=== PATIENT | male | born 1965 | race Caucasian/White ===

== ENCOUNTER 2024-11-22 09:43 | Outpatient (CLI) | payer OTHER, SELFPAY ==
--- OUTSIDE RECORDS SUMMARY | 2024-11-22 10:38 | XMS_ITS | Clinical Summary ---
Author Organization [facility] Address [address] [place] [address] Phone Care Team Providers Care Order Management Specialist Name Role Phone Provider, None Primary Care Provider Unavailabl e Medications omeprazole (PriLOSEC) 20 MG CAPSULE DELAYED RELEASEIndicat ions:Gastroeso phageal Reflux Disease Take 1 Capsule by mouth daily. Indications: Gastroesophageal Reflux Disease 30 Capsule 10/07/19 Active Encounters Date Type Department Care Team Description 10/20/2024 Telephone [facility] [address] [place] [address] Soraya Ahn RN 10/06/2024 5:36 PM CDT - 10/06/2024 6:56 PM CDT Emergency [facility] [address] [place] [phone] Fidel Francisco MD Hypokalemia Discharge Disposition: Discharged to home or Selfcare 10/06/2024 Travel 10/05/2024 12:16 PM CDT - 10/05/2024 2:16 PM CDT Emergency [facility] [address] [place] [address] Eneida Nichols MD Alcoholic encephalopathy (HCC) Discharge Disposition: Left Against Medical Advice 10/05/2024 10:05 AM CDT - 10/05/2024 11:02 AM CDT Emergency [facility] [address] [place] [address] Eneida Nichols MD Discharge Disposition: Left Against Medical Advice 10/05/2024 Telephone [facility] [address] [facility] [place] [address] Maryuri Lewis RN ED Follow up (Test results) 10/05/2024 Travel from Last 3 Months Social History Tobacco Use Types Packs/Day Years Used Date Smoking Tobacco: Every Day Cigarettes Smokeless Tobacco: Never Tobacco Cessation:Ready to Q uit: Not Asked Alcohol Use Standard Drinks/Week Comments Yes 0 (1 standard drink = 0.6 oz pur e alcohol) daily Sex and Gender Information Value Date Recorded Sex Assigned at Not on file Legal Sex Male 9:07 PM CDT Gender Identity Not on file Sexual Orientation Not on file Last Filed Vital Signs Vital Sign Reading Time Taken Comments Blood Pressure 133/62 10/06/2024 6:00 PM CDT Pulse 73 10/06/2024 6:00 PM CDT Temperature 37.3 C (99.2 F) 10/06/2024 4:23 PM CDT Respiratory Rate 16 10/06/2024 6:00 PM CDT Oxygen Saturation 97% 10/06/2024 6:00 PM CDT Inhaled Oxygen Concentration - - Weight 79.4 kg (175 lb) 10/06/2024 4:23 PM CDT Height 170.2 cm (5' 7) 10/06/2024 4:23 PM CDT Body Mass Index 27.41 10/06/2024 4:23 PM CDT Plan of Treatment Health Maintenance Due Date Last Done Comments Hepatitis C Virus (HCV) Screening 1965 TdaP Immunization 1965 Pneumococcal Immunization (5 0+ years) (1 of 2 - PCV) 1982 Cologuard 02/13/2008 Colonoscopy 02/13/2008 Colorectal Cancer Screening 02/13/2008 Immunochemical Fecal Occult Blood 02/13/2008 Zoster Immunization (1 of 2) 2013 PSA Discussion 2018 SARS-COV-2 Immunization ( season) 2023 08/18/2020, 07/30/2020 Influenza Immunization (#1) 2024 Respiratory Syncytial Virus (RSV) Immunization (Adult) (1 - 1-dose 75+ series) 2038 Hepatitis B Immunization Aged Out No longer eligible based on patient's age to complete this topic Human Papillomavirus (HPV) Immunization Aged Out No longer eligible b ased on patient's age to complete this topic Meningococcal Immunization (ACWY) Aged Out No longer eligible b ased on patient's age to complete this topic Rotavirus Immunization Aged Out No lo nger eligible based on patient's age to complete this topic Procedures Procedure Name Priority Date/Time Associated Diagnosis Comments CBC WITH AUTO DIFFERENTIAL STAT 10/06/2024 4:30 PM CDT ETHYL ALCOHOL (ETHANOL) STAT 10/06/2024 4:30 PM CDT COMPLETE BLOOD COUNT (CBC) WITH DIFF STAT 10/06/2024 4:30 PM CDT CMP (COMPREHENSIVE METABOLIC PANEL) STAT 10/06/2024 4:[address] CHEST ABDOMEN AND PELVIS W CONTRAST Stat with Interpretation 10/05/2024 1:[address] HEAD OR BRAIN WO CONTRAST Stat with Interpretation 10/05/2024 1:02 PM CDT GOLD TOP TUBE STAT 10/05/2024 10:50 AM CDT BLUE TOP TUBE STAT 10/05/2024 10:50 AM CDT EXTRA TUBES STAT 10/05/2024 10:50 AM CDT CBC WITH AUTO DIFFERENTIAL STAT 10/05/2024 10:20 AM CDT N-TERMINAL- PRO B TYPE NATRIURETIC PEPTIDE STAT 10/05/2024 10:20 AM CDT ETHYL ALCOHOL (ETHANOL) STAT 10/05/2024 10:20 AM CDT MAGNESIUM (MG) STAT 10/05/2024 10:20 AM CDT TROPONIN I, HIGH SENSITIVITY (HSTRP) STAT 10/05/2024 10:20 AM CDT CMP (COMPREHENSIVE METABOLIC PANEL) STAT 10/05/2024 10:20 AM CDT COMPLETE BLOOD COUNT (CBC) WITH DIFF STAT 10/05/2024 10:20 AM CDT EKG 12 LEAD STAT 10/05/2024 10:05 AM CDT EKG SCAN 10/05/2024 12:00 AM CDT from Last 3 Months Results * (ABNORMAL) CBC with Auto Differential (10/06/2024 4:30 PM CDT) Only the most recent of2 resultswithin the time period is included. WBC 9.24 4.00 - 12.00 10(3)/mcL 10/06/2024 4:41 PM CDT [facility] RBC 4.84 4.40 - 5.80 10(6)/mcL 10/06/2024 4:41 PM CDT [facility] HEMOGLOBIN (HGB) 15.7 13.0 - 16.5 g/dL 10/06/2024 4:41 PM CDT [facility] HEMATOCRIT (HCT) 42.9 38.0 - 50.0 % 10/06/2024 4:41 PM CDT [facility] MCV 88.6 82.0 - 96.0 fL 10/06/2024 4:41 PM CDT [facility] MCH 32.4(H) 26.0 - 32.0 pg 10/06/2024 4:41 PM CDT [facility] MCHC 36.6(H) 31.0 - 36.0 g/dL 10/06/2024 4:41 PM CDT [facility] PLATELET COUNT 152 140 - 440 10(3)/mcL 10/06/2024 4:41 PM CDT [facility] RDW 11.1(L) 11.8 - 15.5 % 10/06/2024 4:41 PM CDT [facility] MPV 9.0 8.0 - 12.6 fL 10/06/2024 4:41 PM CDT [facility] NEUTROPHILS 66.0 40.0 - 68.0 % 10/06/2024 4:41 PM CDT [facility] LYMPHOCYTES 16.5(L) 19.0 - 49.0 % 10/06/2024 4:41 PM CDT [facility] MONOCYTES 15.2(H) 3.0 - 13.0 % 10/06/2024 4:41 PM CDT [facility] EOSINOPHILS 0.5 0.0 - 8.0 % 10/06/2024 4:41 PM CDT [facility] BASOPHILS 0.6 0.0 - 1.0 % 10/06/2024 4:41 PM CDT [facility] IMMATURE GRANULOCYTE 1.2(H) 0.0 - 0.4 % 10/06/2024 4:41 PM CDT [facility] Comment:Immature Granulocyte s includes Metamyelocytes, Myelocytes, and Promyelocytes. ABSOLUTE NEUTROPHILS 6.10(H) 1.40 - 5.30 10(3)/[facility] 10/06/2024 4:41 PM CDT [facility] ABSOLUTE LYMPHOCYTES 1.52 0.90 - 3.30 10(3)/[facility] 10/06/2024 4:41 PM CDT [facility] ABSOLUTE MONOCYTES 1.40(H) 0.10 - 0.90 10(3)/mcL 10/06/2024 4:41 PM CDT [facility] ABSOLUTE EOSINOPHIL 0.05 0.00 - 0.50 10(3)/[facility] 10/06/2024 4:41 PM [facility] ABSOLUTE BASOPHILS 0.06 0.00 - 0.10 10(3)/[facility] 10/06/2024 4:41 PM CDT [facility] ABSOLUTE IMMATURE GRANULOCYTE 0.11(H) 0.00 - 0.03 10 (3) mcL. 10/06/2024 4:41 PM CDT [facility] NRBC PER 100 WBC 0 10/07/19 4:41 PM CDT [facility] Blood Venipuncture / Unknown 10/06/2024 4:30 PM CDT 10/06/2024 4:37 PM CDT Tom Fleipe Randell DO HEMATOLOGY ORDERABLES F inal Result Performing Organization Address [facility] Co de Phone Number [facility] [address] [place] [address] * (ABNORMAL) Ethyl Alcohol(Ethanol) [id number] (10/06/2024 4:30 PM CDT) Only the most recent of2 resultswithin the time period is included. ETHANOL 29(H) <10 mg/dL 10/06/2024 5:0 2 PM CDT [facility] Blood Venipuncture / Unknown 10/06/2024 4:30 PM CDT 10/06/2024 4:37 PM CDT Norman Hodge PAC CHEMISTRY ORDERABLES Final Result Performing Organization Address [facility] Co de Phone Number [facility] [address] [place] [address] * (ABNORMAL) CMP (Comprehensive Metabolic Panel) (10/06/2024 4:30 PM CDT) Only the most recent of2 resultswithin the time period is included. SODIUM 125(L) 136 - 145 mmol/L 10/06/2024 5:09 PM CDT [facility] POTASSIUM 3.3(L) 3.5 - 5.1 mmol/L 10/06/2024 5:09 PM CDT [facility] CHLORIDE 91(L) 98 - 107 mmol/L 10/06/2024 5:09 PM CDT [facility] CO2, VENOUS 23 22 - 30 mmol/L 10/06/2024 5:09 PM T [facility] ANION GAP 14.3 <18.0 mmol/L 10/06/2024 5:09 PM T [facility] GLUCOSE 97 70 - 99 mg/dL 10/06/2024 5:09 PM T [facility] BUN 6(L) 8 - 26 mg/dL 10/06/2024 5:09 PM [facility] CREATININE, BLOOD 0.59(L) 0.70 - 1.30 mg/dL 10/06/2024 5:09 PM [facility] BUN/CREATININE RATIO 10(L) 12 - 20 ratio 10/06/2024 5:09 PM [facility] TOTAL PROTEIN 7.2 6.0 - 8.0 g/dL 10/06/2024 5:09 PM [facility] ALBUMIN 4.2 3.5 - 5.0 g/dL 10/06/2024 5:09 PM [facility] A/G RATIO 1.4 1.0 - 2.2 10/06/2024 5:09 PM [facility] CALCIUM 9.1 8.7 - 10.5 mg/dL 10/06/2024 5:09 PM [facility] T BILI 1.3(H) 0.2 - 1.2 mg/dL 10/06/2024 5:09 PM [facility] SGOT (AST) 71(H) <43 U/L 10/06/2024 5:09 PM [facility] SGPT (ALT) 119(H) <56 U/L 10/06/2024 5:09 PM [facility] ALKALINE PHOSPHATASE 96 40 - 150 U/L 10/06/2024 5:09 PM [facility] GFR, ESTIMATED >60 >=60 10/06/2024 5:09 PM T [facility] Comment: Creatinine Clearance is the preferred criteria for selecting drug dose adjustments in renally impaired patients. The GFR is provided as additional pertinent clinical information. GFR is reported in mL/min/1.73 sq m. Calculation based on the Chronic Kidney Disease Epidemiology Collaboration (CKD- EPI) equation refit without adjustment for race. GFR, EST. >60 >=60 025 5:09 PM CDT [facility] GFR, EST. NONAFRICAN >60 >=60 10/06/2024 5:09 PM CDT [facility] Blood Venipuncture / Unknown 10/06/2024 4:30 PM CDT 10/06/2024 4:37 PM CDT us Tom Mejias DO CHEMISTRY ORDERABLES Fi nal Result [facility] [address] [place] [address] * CT CHEST ABDOMEN AND PELVIS W CONTRAST (10/05/2024 1:09 PM CDT) Anatomical Region Laterality Modality Chest, Abdomen, Pelvis N/A Computed Tomography 10/05/2024 2:22 PM CDT Impressions 10/05/2024 2:24 PM CDT IMPRESSION: 1. Circumferential thickening of the entire esophagus with mucosal hyperenhancement and fluid in the mid and distal esophagus. Findings likely represent esophagitis. Recommend correlation with endoscopy. 2. Small area of tree-in-bud nodular and ground-glass opacity in the left lower lobe, likely infectious or inflammatory. 3. 6 mm nodule in the left upper lobe. Recommend follow-up chest CT per Fleischner guidelines. 4. Mild wall thickening of several loops of jejunum, which may be related to enteritis. 5. Severe hepatic steatosis. 6. Indeterminate 1.5 cm left adrenal gland nodule. This could be better evaluated with adrenal mass protocol MRI or CT. 7. Coronary artery disease and additional findings as above. Recent guidelines by the Fleischner Society (Radiology 971036,2017) divides patient into low vs. high risk (for example, patients who smoke are considered high risk) and provides followup recommendations as follows: SOLITARY PULMONARY NODULE: Patients considered LOW RISK for lung cancer and a solitary nodule equal to or larger than 6 mm or equal to or less than 8 mm in diameter require follow-up CT at 6-12 months, then consider CT at 18-24 months. In patients at HIGHER RISK require follow-up CT at 6-12 months, then CT at 18-24 months. MULTIPLE PULMONARY NODULES: Patients considered LOW RISK for lung cancer and multiple nodules equal to or larger than 6 mm or equal to or less than 8 mm in diameter require follow-up CT at 3-6 months, then consider CT at 18-24 months. Patients at HIGHER RISK require follow-up CT at 3-6 months, then CT at 18-24 months. Note: These recommendations do not apply to lung cancer screening, patients with immunosuppression, or patients with known primary cancer. http://pubs.rsna.org/doi/pdf/10.1148/radiol.6173339727 Narrative 10/05/2024 2:24 PM CDT EXAM DESCRIPTION: CT CHEST ABDOMEN AND PELVIS W CONTRAST REASON FOR STUDY: Sternal chest pain and abdominal pain with SOB x 8 days. Hx of daily smoking. TECHNIQUE: CT scan of the chest, abdomen, and pelvis performed with intravenous and without oral contrast using helical scanning technique with dynamic intravenous contrast injection. Reconstructed coronal and sagittal MPR images reviewed. All images stored on PACS. Automated exposure control was used as a dose optimization technique for this examination. CONTRAST TYPE/DOSE: 100mL of IOPAMIDOL 76 % IV SOLN injected via Intravenous COMPARISON: None FINDINGS: CHEST LUNGS: There is mild respiratory motion artifact degrading the evaluation. There are mild centrilobular and paraseptal emphysematous changes to the lungs. There is a small area tree-in-bud nodular and ground-glass opacity in the left lower lobe. There is a 6 mm nodule in the left upper lobe on series 2, image 65). PLEURA: No effusion. No pneumothorax. MEDIASTINUM/MAYNOR: There is circumferential thickening of the entire esophagus with mucosal hyperenhancement. There is fluid in the mid and distal esophagus as well. There are small mediastinal lymph nodes, nonenlarged by size criteria. There are calcified hilar granulomas. HEART: Heart size is normal with no pericardial effusion. Aortic valvular calcifications are present. There are multivessel coronary artery calcifications. VASCULATURE CHEST: Bdng-vy-ntewvoar atherosclerotic plaque of the thoracic aorta without aneurysm or dissection. AXILLA: No adenopathy. CHEST WALL: No masses. No subcutaneous air. HARDWARE/LINES/TUBES: None. MUSCULOSKELETAL CHEST: No suspicious osseous lesion. There are old right lateral rib fractures. ABDOMEN/PELVIS LIVER: There is severe hepatic steatosis. No hepatic lesions identified. The hepatic and portal veins are patent. GALLBLADDER: No stones identified. No wall thickening or inflammatory changes. BILE DUCTS: No intrahepatic or extrahepatic ductal dilatation. SPLEEN: Normal size. No focal lesions. PANCREAS: No identified cystic or solid masses. No significant calcifications. No adjacent inflammation or peripancreatic fluid collections. Pancreatic duct not dilated. ADRENALS: There is a 1.5 cm nodule in the left adrenal gland which is indeterminate. KIDNEYS/URINARY TRACT: No identified significant cystic or solid masses. No visualized stones. No hydronephrosis or hydroureter. Symmetric enhancement. Urinary bladder is unremarkable. GI: Stomach is decompressed. There is mild wall thickening of several loops of jejunum. No sign of appendicitis. No significant diverticular disease. PERITONEUM: No ascites or free air. RETROPERITONEUM: There are small nonspecific retroperitoneal lymph nodes which are nonenlarged by size criteria. REPRODUCTIVE: Mildly enlarged prostate with dystrophic calcification. VASCULATURE ABDOMEN: Large amount of calcified atherosclerotic plaque in the aorta and iliac vessels without aneurysm. MUSCULOSKELETAL ABDOMEN PELVIS: There is no suspicious osseous lesion. There are degenerative changes of the lumbar spine, including grade 1 anterolisthesis of L5 on S1 with bilateral L5 pars defects. OTHER: No significant abnormality. THIS IS AN ELECTRONICALLY VERIFIED FINAL REPORT 10/05/2024 2:22 PM - Electronically signed by Enrique Boyd M.D. AM: AM Report ID: [id number] Reading Location: [id number] Procedure Note Enrique Boyd MD - 10/05/2024 EXAM DESCRIPTION: CT CHEST ABDOMEN AND PELVIS W CONTRAST REASON FOR STUDY: Sternal chest pain and abdominal pain with SOB x 8 days. Hx of daily smoking. TECHNIQUE: CT scan of the chest, abdomen, and pelvis performed with intravenous and without oral contrast using helical scanning technique with dynamic intravenous contrast injection. Reconstructed coronal and sagittal MPR images reviewed. All images stored on PACS. Automated exposure control was used as a dose optimization technique for this examination. CONTRAST TYPE/DOSE: 100mL of IOPAMIDOL 76 % IV SOLN injected via Intravenous COMPARISON: None FINDINGS: CHEST LUNGS: There is mild respiratory motion artifact degrading the evaluation. There are mild centrilobular and paraseptal emphysematous changes to the lungs. There is a small area tree-in-bud nodular and ground-glass opacity in the left lower lobe. There is a 6 mm nodule in the left upper lobe on series 2, image 65). PLEURA: No effusion. No pneumothorax. MEDIASTINUM/MAYNOR: There is circumferential thickening of the entire esophagus with mucosal hyperenhancement. There is fluid in the mid and distal esophagus as well. There are small mediastinal lymph nodes, nonenlarged by size criteria. There are calcified hilar granulomas. HEART: Heart size is normal with no pericardial effusion. Aortic valvular calcifications are present. There are multivessel coronary artery calcifications. VASCULATURE CHEST: Jgrj-wy-jzraxhgd atherosclerotic plaque of the thoracic aorta without aneurysm or dissection. AXILLA: No adenopathy. CHEST WALL: No masses. No subcutaneous air. HARDWARE/LINES/TUBES: None. MUSCULOSKELETAL CHEST: No suspicious osseous lesion. There are old right lateral rib fractures. ABDOMEN/PELVIS LIVER: There is severe hepatic steatosis. No hepatic lesions identified. The hepatic and portal veins are patent. GALLBLADDER: No stones identified. No wall thickening or inflammatory changes. BILE DUCTS: No intrahepatic or extrahepatic ductal dilatation. SPLEEN: Normal size. No focal lesions. PANCREAS: No identified cystic or solid masses. No significant calcifications. No adjacent inflammation or peripancreatic fluid collections. Pancreatic duct not dilated. ADRENALS: There is a 1.5 cm nodule in the left adrenal gland which is indeterminate. KIDNEYS/URINARY TRACT: No identified significant cystic or solid masses. No visualized stones. No hydronephrosis or hydroureter. Symmetric enhancement. Urinary bladder is unremarkable. GI: Stomach is decompressed. There is mild wall thickening of several loops of jejunum. No sign of appendicitis. No significant diverticular disease. PERITONEUM: No ascites or free air. RETROPERITONEUM: There are small nonspecific retroperitoneal lymph nodes which are nonenlarged by size criteria. REPRODUCTIVE: Mildly enlarged prostate with dystrophic calcification. VASCULATURE ABDOMEN: Large amount of calcified atherosclerotic plaque in the aorta and iliac vessels without aneurysm. MUSCULOSKELETAL ABDOMEN PELVIS: There is no suspicious osseous lesion. There are degenerative changes of the lumbar spine, including grade 1 anterolisthesis of L5 on S1 with bilateral L5 pars defects. OTHER: No significant abnormality. THIS IS AN ELECTRONICALLY VERIFIED FINAL REPORT 10/05/2024 2:22 PM - Electronically signed by Enrique Boyd M.D. AM: AM Report ID: [id number] Reading Location: [id number] IMPRESSION: 1. Circumferential thickening of the entire esophagus with mucosal hyperenhancement and fluid in the mid and distal esophagus. Findings likely represent esophagitis. Recommend correlation with endoscopy. 2. Small area of tree-in-bud nodular and ground-glass opacity in the left lower lobe, likely infectious or inflammatory. 3. 6 mm nodule in the left upper lobe. Recommend follow-up chest CT per Fleischner guidelines. 4. Mild wall thickening of several loops of jejunum, which may be related to enteritis. 5. Severe hepatic steatosis. 6. Indeterminate 1.5 cm left adrenal gland nodule. This could be better evaluated with adrenal mass protocol MRI or CT. 7. Coronary artery disease and additional findings as above. Recent guidelines by the Fleischner Society (Radiology 940454,2017) divides patient into low vs. high risk (for example, patients who smoke are considered high risk) and provides followup recommendations as follows: SOLITARY PULMONARY NODULE: Patients considered LOW RISK for lung cancer and a solitary nodule equal to or larger than 6 mm or equal to or less than 8 mm in diameter require follow-up CT at 6-12 months, then consider CT at 18-24 months. In patients at HIGHER RISK require follow-up CT at 6-12 months, then CT at 18-24 months. MULTIPLE PULMONARY NODULES: Patients considered LOW RISK for lung cancer and multiple nodules equal to or larger than 6 mm or equal to or less than 8 mm in diameter require follow-up CT at 3-6 months, then consider CT at 18-24 months. Patients at HIGHER RISK require follow-up CT at 3-6 months, then CT at 18-24 months. Note: These recommendations do not apply to lung cancer screening, patients with immunosuppression, or patients with known primary cancer. http://pubs.rsna.org/doi/pdf/10.1148/radiol.9287354117 Eneida Nichols MD IMG CT ORDERABLES Final Result * CT HEAD OR BRAIN WO CONTRAST (10/05/2024 1:02 PM CDT) Anatomical Region Laterality Modality Head N/A Computed Tomogra phy 10/05/2024 2:08 PM CDT Impressions 10/05/2024 2:10 PM CDT IMPRESSION: 1. No acute intracranial findings. 2. Mild chronic microangiopathy and generalized atrophy. 3. Complete opacification of the left and partial opacification of the right mastoid air cells, nonspecific but could be related to mastoiditis. Narrative 10/05/2024 2:10 PM CDT EXAM DESCRIPTION: CT HEAD OR BRAIN WO CONTRAST REASON FOR STUDY: AMS with increasing confusion over past two days per patient's GF. Hx of daily drinking and heavy smoking. TECHNIQUE: Axial images acquired through the brain without intravenous contrast. Images stored on PACS. Automated exposure control was used as a dose optimization technique for this examination. COMPARISON: None FINDINGS: BRAIN: No hemorrhage, edema or mass effect. No recent infarct. There is subtle low-attenuation in the supratentorial deep cerebral white matter likely related to chronic microangiopathy. There is also mild generalized atrophy. No hydrocephalus. EXTRA-AXIAL SPACES: No fluid collections. No masses. CALVARIUM: No fracture. SINUSES/MASTOIDS: Complete opacification of the left and partial opacification of the right mastoid air cells. ORBITS: No significant abnormality. OTHER: No other significant abnormality. THIS IS AN ELECTRONICALLY VERIFIED FINAL REPORT 10/05/2024 2:08 PM - Electronically signed by Enrique Boyd M.D. AM: AM Report ID: [id number] Reading Location: [id number] Procedure Note Enrique Boyd MD - 10/05/2024 EXAM DESCRIPTION: CT HEAD OR BRAIN WO CONTRAST REASON FOR STUDY: AMS with increasing confusion over past two days per patient's GF. Hx of daily drinking and heavy smoking. TECHNIQUE: Axial images acquired through the brain without intravenous contrast. Images stored on PACS. Automated exposure control was used as a dose optimization technique for this examination. COMPARISON: None FINDINGS: BRAIN: No hemorrhage, edema or mass effect. No recent infarct. There is subtle low-attenuation in the supratentorial deep cerebral white matter likely related to chronic microangiopathy. There is also mild generalized atrophy. No hydrocephalus. EXTRA-AXIAL SPACES: No fluid collections. No masses. CALVARIUM: No fracture. SINUSES/MASTOIDS: Complete opacification of the left and partial opacification of the right mastoid air cells. ORBITS: No significant abnormality. OTHER: No other significant abnormality. THIS IS AN ELECTRONICALLY VERIFIED FINAL REPORT 10/05/2024 2:08 PM - Electronically signed by Enrique Boyd M.D. AM: AM Report ID: [id number] Reading Location: [place] [id number] IMPRESSION: 1. No acute intracranial findings. 2. Mild chronic microangiopathy and generalized atrophy. 3. Complete opacification of the left and partial opacification of the right mastoid air cells, nonspecific but could be related to mastoiditis. us Eneida Nichols MD IMG CT ORDERABLES Final Result * Gold Top Tube (10/05/2024 10:50 AM CDT) Blood No Phlebotomy Charged / Unknown 10/05/2024 10:50 AM CDT 10/05/2024 11:03 AM CDT us Eneida Nichols MD CHEMISTRY ORDERABLES Fin al Result [facility] [address] [place] [address] * Blue Top Tube (10/05/2024 10:50 AM CDT) Blood No Phlebotomy Charged / Unknown 10/05/2024 10:50 AM CDT 10/05/2024 11:03 AM CDT us Eneida Nichols MD HEMATOLOGY ORDERABLES Fi nal Result Performing Organization Address City/[facility]/ZIP Co de Phone Number [facility] [place] [address] * NT-proBNP (10/05/2024 10:20 AM CDT) NT PROBNP 153.7 <450.0 pg/mL 10/05/2024 12:20 PM CDT [facility] Comment: AGE pg/mL INTERPRETATION All <300 Negative: HF (Heart Failure) unlikely 18 to <50 >=300.0 to <450.0 Indeterminate. Consider other causes of NT-proBNP elevation 50 to 75 >=300.0 to <900.0 Indeterminate. Consider other causes of NT-proBNP elevation >75 >=300.0 to <1800.0 Indeterminate. Consider other causes of NT-proBNP elevation 18 to <50 >=450.0 Positive: HF likely 50 to 75 >=900.0 Positive: HF likely >75 >=1800.0 Positive: HF likely Total protein levels at or above 12.6 mg/dl may falsely decrease NT-proBNP values. Blood Venipuncture / Unknown 10/05/2024 10:20 AM CDT 10/05/2024 11:02 AM CDT Eneida Nichols MD CHEMISTRY ORDERABLES Fin al Result Performing Organization Address [facility] Co de Phone Number [facility] [place] [address] * (ABNORMAL) TROPONIN I, HIGH SENSITIVITY (HSTRP) (10/05/2024 10:20 AM CDT) TROPONIN I, HIGH SENSITIVITY- LEIGH 46(H) <=35 ng/L 10/05/2024 11:32 AM CDT [facility] Comment: High-sensitivity troponin I results are reported in ng/L making the result appear to be 1,000 times higher than the contemporary troponin I value which is reported in ng/ml. Results from [place]. Blood Venipuncture / Unknown 10/05/2024 10:20 AM CDT 10/05/2024 11:02 AM CDT Eneida Nichols MD CHEMISTRY ORDERABLES Fin al Result Performing Organization Address [facility] Co de Phone Number [facility] [place] [address] * Magnesium (Mg) [id number] (10/05/2024 10:20 AM CDT) MAGNESIUM 2.2 1.6 - 2.6 mg/dL 10/05/2024 11:36 AM CDT [facility] Blood Venipuncture / Unknown 10/05/2024 10:20 AM CDT 10/05/2024 11:02 AM CDT Eneida Nichols MD CHEMISTRY ORDERABLES Fin al Result Performing Organization Address [place]/[facility] Co de Phone Number [facility] [place] [address] * EKG 12 LEAD (10/05/2024 10:05 AM CDT) Ventricular Rate 74 BPM EXTERNAL EKG Atrial Rate 74 BPM EXTERNAL EKG P-R Interval 244 ms EXTERNAL EKG QRS Duration 102 ms EXTERNAL EKG Q-T Duration 414 ms EXTERNAL EKG QTC CALCULATION 459 ms EXTERNAL EKG P [place] 61 degrees EXTERNAL EKG R [place] 42 degrees EXTERNAL EKG T [place] 39 degrees EXTERNAL EKG 10/05/2024 10:0 5 AM CDT Impressions EXTERNAL EKG - 10/06/2024 3:01 PM CDT Sinus rhythm with 1st degree AV block Poor R-wave progression Nonspecific ST abnormality Abnormal ECG No previous ECGs available Confirmed by Billy Pisano ([id number]) on 10/06/2024 3:01:00 PM Narrative Procedure Note Billy Pisano MD PhD - 10/06/2024 IMPRESSION: Sinus rhythm with 1st degree AV block Poor R-wave progression Nonspecific ST abnormality Abnormal ECG No previous ECGs available Confirmed by Billy Pisano ([id number]) on 10/06/2024 3:01:00 PM us Eneida Nichols MD IMG ECG ORDERABLES Final Result EXTERNAL EKG * EKG SCAN (10/05/2024 12:00 AM CDT) 10/05/2024 us Provider Scan IMG ECG ORDERABLES Final Result RESULTING AGENCY from Last [address] [place] [address] [address] Care Teams Order Management Specialist Relationship Specialty Start Date End Date Provider, None [place] PCP - General 10/05/24
[2024-11-22 12:49] LABS: Hematocrit 43.3 % (42.0-52.0); Hemoglobin 15.1 g/dL (14.0-18.0); Immature Granulocyte Percent A 0.8 % (0-0.5); Lymphocytes Absolute Auto 1.73 K/mm3 (0.9-3.2); Mean Corpuscular HGB Conc 34.9 g/dl (32-36); Mean Corpuscular Hemoglobin 34.1 pg (26-34); Mean Corpuscular Volume 97.7 fl (80-100); Nucleated Red Blood Cells Absolute Auto 0.000 K/mm3 (0.0-0.012); Nucleated Red Blood Cells Perc 0.0 % (0.0-0.2); Platelet Count Result 199 k/mm3 (150-375); Red Blood Count 4.43 M/mm3 (4.6-6.20); White Blood Count 7.4 K/mm3 (4.5-10.0)
[2024-11-22 13:04] LABS: Alanine Aminotransferase 42 U/L (6-50); Albumin Level 4.3 g/dL (3.5-5.1); Alkaline Phosphatase 109 U/L (38-126); Anion Gap 10 mmol/L (4-12); Aspartate Amino Transferase 90 U/L (17-59); Bilirubin,Total 0.9 mg/dL (0.2-1.3); Blood Urea Nitrogen 4 mg/dL (9-20); Calcium 9.4 mg/dL (8.4-10.2); Carbon Dioxide 23 mmol/L (22-30); Chloride 96 mmol/L (98-107); Cholesterol 146 mg/dL (0-200); Estimated Glomerular Filt Rate > 60; Glucose 88 mg/dL (65-110); HDL Direct 77 mg/dL; Potassium 4.4 mmol/L (3.4-5.0); Sodium 129 mmol/L (137-145); Total Protein 7.7 g/dL (6.3-8.2); Triglycerides 42 mg/dL (<150)
[2024-11-22 13:40] LABS: Prostate Specific Antigen 0.5 ng/mL (< OR = 4.0)
== END 2024-11-22 09:44 | disposition home or self-care (01) ==
LOC: ANHGOSHLAB 09:49
PROVIDERS: PCP Nurse Practitioner; Visit Provider Nurse Practitioner
DX: Z13.29 Encounter for screening for other suspected endocrine disorder (principal); Z13.220 Encounter for screening for lipoid disorders; Z12.5 Encounter for screening for malignant neoplasm of prostate
CPT/HCPCS: 36415; 80053; 80061; 84153; 85025; G0103